=== PATIENT | female | born 1970 | race Caucasian/White ===

== ENCOUNTER 2020-12-15 19:20 | Emergency (ER) | payer SELFPAY ==
[~2020-12-15 19:20] MED LIST: NS 0.9% w/ 40 MEQ KCL 1,000 ML BAG IV ONE
[2020-12-15 19:58] LABS: #Basophils 0.1 thou/uL (0.0-0.2); #Lymphocytes 1.1 thou/uL (1.20-3.40); #Monocytes 0.4 thou/uL (0.11-0.59); #Neutrophils 7.2 thou/uL (1.40-6.50); %Basophils 0.6 % (0.0-1.0); %Lymphocytes 12.9 % (21.0-51.0); %Monocytes 4.9 % (0.0-10.0); %Neutrophils 81.5 % (42.0-75.0); Hemoglobin 16.2 g/dL (12.0-16.0); Mean Corpuscular HGB CONC 34.3 g/dL (32.0-36.0); Mean Corpuscular Hemoglobin 30.6 pg (27.0-31.0); Mean Corpuscular Volume 89.2 fL (78.0-98.0); Mean Platelet Volume 7.2 fL (7.4-10.4); Platelet Count 239 thou/uL (130-400); RBC Distribution Width 12.1 % (11.5-14.5); White Blood Cell (WBC) Count 8.8 thou/uL (4.8-10.8)
[2020-12-15] MEDS ORDERED: Azithromycin 500 MG VIAL ONE (19:59)
[2020-12-15] MEDS ORDERED: cefTRIAXone\\ROCEPHIN 2 GM VIAL ONE (19:59)
[2020-12-15 20:12] LABS: ALT (SGPT) 97 U/L (8-55); AST (SGOT) 150 U/L (5-34); Albumin 4.1 g/dL (3.5-5.0); Alkaline Phosphatase 121 U/L (40-110); Anion Gap 17 mmol/L (10-20); BUN (Urea Nitrogen) 9 mg/dL (7.0-18.7); Bilirubin, Total 0.4 mg/dL (0.2-1.2); Calc. Creatinine Clearance 0 mL/min (70-130); Calcium 8.7 mg/dL (7.8-10.44); Carbon Dioxide 20 mmol/L (22-29); Chloride 99 mmol/L (98-107); Globulin 3.7 g/dL (2.4-3.5); Glucose 123 mg/dL (70-105); Protein, Total 7.8 g/dL (6.0-8.3); Sodium 133 mmol/L (136-145)
[2020-12-15] MEDS ORDERED: Promethazine HCl 25 MG/ML VIAL ONE (20:34)
[2020-12-15] MEDS ORDERED: Aspirin Chewable 81 MG TAB ONE (20:39)
[2020-12-15 20:51] LABS: CKMB 10.9 ng/mL (0-6.6)
[2020-12-15 20:52] LABS: Potassium 2.5 mmol/L (3.5-5.1)
[2020-12-15 20:56] LABS: Bilirubin Negative (Negative); Blood, Urine Trace (Negative); Clarity Clear (Clear); Glucose, Urine (Dipstick) Negative (Negative); Ketone, Urine Negative (Negative); Leukocyte Negative (Negative); Nitrite Negative (Negative); Protein, Urine (Dipstick) Trace mg/dL (Neg-Trace); Specific Gravity, Urine 1.015 (1.005-1.030); Urobilinogen 0.2 mg/dL (Less than 2)
[2020-12-15 21:03] LABS: Bacteria/HPF Rare-Few HPF (None Seen); Oval Fat Bodies/HPF Rare HPF (None Seen); RBC/HPF 0-3 HPF (0-3); Squamous Epithelial 0-3 HPF (0-3); WBC/HPF 0-3 HPF (0-3)
[2020-12-15 21:41] LABS: SARS-CoV-2 NAA Rapid Test DETECTED (NotDetected)
[2020-12-15] MEDS ORDERED: Dexamethasone 10 MG/ML VIAL ONE (21:48)
[2020-12-15] MEDS ORDERED: Enoxaparin Sodium 100 MG/ML SYRINGE ONE (21:48)
[2020-12-15] MEDS ORDERED: Potassium Chloride 20 MEQ TAB ONE (21:57)
[2020-12-15 22:26] LABS: Base Excess-Venous -3.7 mmol/L (-2.0 to 3.0); Bicarbonate (HCO3v) 19.3 mmol/L (22.0-28.0); CO2 Tension (PvCO2) 28.5 mmHg (42.0-51.0); Calcium, Ionized 0.96 mmol/L (1.15-1.33); Chloride 104 mmol/L (98-107); Hemoglobin - Calc 12.9 g/dL (12.0-16.0); Potassium 2.6 mmol/L (3.5-5.1); Sodium 137 mmol/L (138-145); T. Carbon Dioxide 20.2 mmol/L (22.0-28.0); vO2 Saturation-calc 99.7 % (60.0-85.0)
== END 2020-12-15 22:05 | disposition short-term general hospital (02) ==
LOC: BURERS 19:20
DX: U07.1 COVID-19 (principal); J12.82 Pneumonia due to coronavirus disease 2019; R06.02 Shortness of breath; R09.02 Hypoxemia; E87.6 Hypokalemia; E66.9 Obesity, unspecified
CPT/HCPCS: 36415; 71045; 80053; 81003; 81015; 82330; 82553; 82803; 83605; 83880; 84484; 85025; 87804; 93005; 96365; 96367; 96372; 96375; J0456; J0696; J1100; J1650; J2550; J3480; U0002